=== PATIENT | male | born 1980 | race Caucasian/White ===

== ENCOUNTER 2021-03-26 15:39 | Emergency (ER) | payer OTHER, SELFPAY ==
--- NOTE | ~2021-03-26 | XR_ITS ---
EXAMINATION: XR CHEST CLINICAL INFORMATION: Elevated glucose and leukocytosis COMPARISON: None TECHNIQUE: Frontal view of the chest was obtained. FINDINGS: No significant abnormality is noted involving the heart, lungs, mediastinum, bony thorax or soft tissues. XR/XR chest 1V IMPRESSION: Unremarkable examination.
[2021-03-26 15:56] VITALS: BP 112/90; PULSE 112; RESP 18; TEMP 36.1; O2SAT 99; BMI 27.8
--- NOTE | 2021-03-26 21:26 | PC.NURSE ---
patient [facility] to [facility] because of attempting to get blood work and not giving him IV fluids in waiting room. States this should be illegal. States so many other people have been seen before him and that we are purposely keeping patient in waiting room. I educated patient that it is not purposeful and that we are busy, and that we are drawing blood to speed the process for him. Patient became verbally agressive and stated this is the worst Fing place to be.
[2021-03-26 21:41] LABS: Glucose, Whole Blood 170 mg/dL (60-115)
--- NOTE | 2021-03-26 22:27 | ED.GENADULT ---
HPI - General Adult General Chief complaint: General Medical Stated complaint: blood sugar 400-[address] [facility] Time Seen by Provider: 03/26/21 22:17 Source: patient Mode of arrival: ambulatory Limitations: no limitations History of Present Illness HPI narrative: 40-year-old male with a history of type 1 diabetes here with complaints of feeling dehydrated with high blood sugars over the last 3-4 days. Patient tells me his blood sugars have been over 400. He has been taking his insulin as prescribed. He denies any cough, fever, shortness of breath, chest pain, abdominal pain, vomiting, diarrhea or urinary symptoms. He tells me that he is feeling dehydrated with increased thirst but not voiding as much as normal. Related Data Allergies Allergy/AdvReac Type Severity Reaction Status Date / Time No Known Allergies Allergy Verified 03/26/21 22:26 Review of Systems Review of Systems: Yes all other systems are reviewed and are negative Constitutional: Constitutional: Reports no additional constitutional complaints, Denies body ache(s), Denies chills, Denies fever(s), Denies headache(s) and Reports weakness Comments: Increased thirst Eyes: Eyes: Reports no additional eye complaints and Denies change in vision ENT: Reports system reviewed and no additional complaints, except as documented, Denies dizziness, Denies headache(s), Denies nasal congestion, Denies nasal discharge and Denies neck pain Cardiovascular: Cardiovascular: Reports no additional cardiovascular complaints, Denies chest pain, Denies leg edema and Denies dyspnea Respiratory: Respiratory: Reports no additional respiratory complaints, Denies cough and Denies dyspnea Gastrointestinal: Gastrointestinal: Reports no additional gastrointestinal complaints, Denies abdominal pain, Denies diarrhea, Denies nausea and Denies vomiting Genitourinary: Genitourinary: Denies urinary incontinence Comments: Decreased urination Musculoskeletal: Musculoskeletal: Reports no additional musculoskeletal complaints, Denies back pain, Denies arthralgias, Denies joint swelling, Denies neck pain, Denies numbness and Denies tingling Integumentary/Breasts: Skin/Breast: Reports system reviewed and no additional complaints, except as docu and Denies rash Neurologic: Reports system reviewed and no additional complaints, except as documented, Denies Abnormal speech present, Denies dizziness, Denies headache(s), Denies numbness, Denies tingling and Reports weakness PMFSH Past Medical History Attestation statement: The following information was validated with the patient. Source: old records reviewed and nursing notes reviewed Social History Social History Advance Directives: No Advance Directives Information Provided: No Physical Exam Vital Signs: Vital Signs: Last Vital Signs Temp 97.9 F 03/26/21 23:23 Pulse 97 03/27/21 01:08 Resp 12 03/27/21 01:08 BP 121/64 03/27/21 01:08 Pulse Ox 97 03/27/21 01:08 Body Mass Index 27.8 Const: Other: Patient agitated and irritable General: alert Orientation/consciousness: patient oriented x3 Limitations: no limitations HENMT: Head: Yes normal to inspection Ears: hearing grossly normal bilaterally and TM's normal bilaterally General nose exam: Normal external nose present Face and sinus: Yes normal facial exam Mouth: Normal oral and palatal mucosa present Throat: Yes posterior oropharynx normal, Yes tonsils normal and Yes uvula midline Eyes: General: appearance normal, both eyes and all related structures Pupils: Equal, round and reactive pupils present Neck: Neck: Yes normal visual inspection, Yes full ROM, Yes no lymphadenopathy and Yes no meningeal signs Chest: Chest palpation & inspection: normal inspection of the chest Resp: Effort & Inspection: normal respiratory effort Auscultation: clear to auscultation bilaterally Cardio: Rate: regular rate Rhythm: regular rhythm Peripheral pulses: Peripheral pulses 2+ throughout GI: Inspection: Yes normal to inspection Palpation (GI): Soft to palpation and nontender Auscultation: normal bowel sounds Back/Spine/Pelvis: Thoracic/Lumbar Spine: thoracic and lumbar spine normal to inspection Skin: General skin exam: no rashes or lesions noted Neuro: General: patient oriented x3, no meningeal signs, no focal motor deficits and normal sensation to monofilament Cranial nerves: Yes Equal, round and reactive pupils present Cognition (Neuro): normal cognition Speech: No Abnormal speech present Gait exam (Neuro): Normal gait present Motor exam (neuro): 5/5 motor strength present throughout Extrem: General: Yes normal to inspection, Yes no pedal edema and Yes no calf tenderness Course Course Course Narrative: 40-year-old male here with complaints of high blood sugars over the last few days with unknown cause and feeling weak and dehydrated today. Blood sugar here 177. Patient tells me this is because he has not eaten for several hours. Quite irritable and agitated on my exam. I explained to the patient I would like to obtain lab work on him but he tells me he only wants IV fluids. I explained to him that we would check this at the same time. Patient tells me he has a difficult IV stick and only would like lab work. I offered placing an EJ but patient declined this. Therefore, will let nursing attempt IV placement and labs to be checked 2315-patient agreeable to EJ placement and labs are drawn off of this 2340-reviewed labs. Leukocytosis, hyponatremia, hypochloremia, acute kidney injury. Blood sugar is 134. No evidence of DKA. I spoke to the patient. Recommended he be admitted for IV hydration and observation but he declined this. He is alert and oriented and able to make his own decisions. Will check chest x-ray and UA to rule out underlying infection. Patient is agreeable to this. Refused EKG. 0115-chest x-ray shows no acute finding. Patient refused to provide urine sample. I spoke to him again at length. Recommended admission but patient declined. Here with his partner who will bring him home. He is alert and oriented. We discussed AMA form Procedures Procedure Narrative Procedure Narrative: 20 gauge left EJ placed Medical Decision Making MDM Narrative Medical decision making narrative: Underlying infection DKA Medical Records Medical records reviewed: Yes I reviewed the patient's medical records. Lab Data Lab results reviewed: Yes I reviewed the patient's lab results. Result diagrams: 03/26/21 23:04 03/26/21 23:04 Labs: Lab Results 03/26/21 03/26/21 03/26/21 Range/Units 21:33 23:04 23:04 WBC 16.0 H (4.8-10.8) X10*3/uL RBC 5.66 (4.60-5.80) X10*6/uL Hgb 17.3 (14.0-18.0) g/dl Hct 47.3 (42.0-52.0) % MCV 83.6 (80.0-98.0) fL MCH 30.6 (27.0-33.0) pg MCHC 36.6 H (31.0-36.0) g/dl RDW 12.2 (11.0-16.0) % Plt Count 261 (160-400) X10*3/uL MPV 9.9 (9.4-12.4) fL Immature Gran % (Auto) 0.6 H (0.0-0.4) % Neut % (Auto) 74.8 H (45-73) % Lymph % (Auto) 13.7 L (20-40) % [place] % (Auto) 9.4 (2-11) % Eos % (Auto) 1.3 (0-4) % Baso % (Auto) 0.2 (0-2) % Lymph # (Auto) 2.2 (1.2-4.9) X10*3/uL [place] # (Auto) 1.5 H (0.1-1.2) X10*3/uL Eos # (Auto) 0.2 (0.0-0.4) X10*3/uL Baso # (Auto) 0.0 (0.0-0.2) X10*3/uL Abs Immat Gran (auto) 0.10 H (0.00-0.03) X10*3/uL Absolute Neuts (auto) 11.93 H (2.0-8.3) x10*3/uL Absolute Nucleated RBC 0.000 (0.0-0.012) X10*3/uL Nucleated RBC % (auto) 0.0 (0.0-0.2) /100WBC VBG pH (7.32-7.43) VBG pCO2 mmHg VBG pO2 mmHg VBG HCO3 (22-26) mmol/L VBG O2 Saturation % VBG Base Excess mmol/L Sodium 125 L (135-145) mmol/L Potassium 3.8 (3.3-5.1) mmol/L Chloride 87 L (96-108) mmol/L Carbon Dioxide 23 (22-29) mmol/L Anion Gap 19 (12-20) BUN 59 H (9-16) mg/dL Creatinine 2.69 H (0.5-1.4) mg/dL Estim Creat Clear Calc 40.8 Estimated GFR 27 POC Glucose 170 H (60-115) mg/dL Random Glucose 134 H (60-115) mg/dL Lactic Acid (0.5-2.0) mmol/L Calcium 10.0 (8.4-10.2) mg/dL Magnesium 2.9 H (1.6-2.6) mg/dL Total Bilirubin 1.1 H (0.0-1.0) mg/dL Direct Bilirubin (0.0-0.5) mg/dL AST 19 (5-37) U/L ALT 17 (0-40) U/L Alkaline Phosphatase 123 H (39-117) U/L Total Protein 8.6 H (6.5-8.0) g/dL Albumin 5.0 (3.5-5.0) g/dL Urine Color Urine Appearance Urine pH (5.0-8.0) Ur Specific [place] (1.005-1.025) Urine Protein (NEG-TRACE) MG/DL Urine Glucose (UA) (NEG) MG/DL Urine Ketones (NEG) MG/DL Urine Blood (NEG) Urine Nitrite (NEG) Ur Leukocyte Esterase (NEG) Urine RBC (0) /HPF Urine WBC (0-4) /HPF Ur Squamous Epith Cells /LPF Talc Crystals /LPF Urine Bacteria /LPF Hyaline Casts /LPF Granular Casts /LPF WBC Casts /LPF Acetone, Qual (Negative) 03/26/21 03/26/21 03/26/21 Range/Units 23:04 23:04 23:08 WBC (4.8-10.8) X10*3/uL RBC (4.60-5.80) X10*6/uL Hgb (14.0-18.0) g/dl Hct (42.0-52.0) % MCV (80.0-98.0) fL MCH (27.0-33.0) pg MCHC (31.0-36.0) g/dl RDW (11.0-16.0) % Plt Count (160-400) X10*3/uL MPV (9.4-12.4) fL Immature Gran % (Auto) (0.0-0.4) % Neut % (Auto) (45-73) % Lymph % (Auto) (20-40) % [place] % (Auto) (2-11) % Eos % (Auto) (0-4) % Baso % (Auto) (0-2) % Lymph # (Auto) (1.2-4.9) X10*3/uL [place] # (Auto) (0.1-1.2) X10*3/uL Eos # (Auto) (0.0-0.4) X10*3/uL Baso # (Auto) (0.0-0.2) X10*3/uL Abs Immat Gran (auto) (0.00-0.03) X10*3/uL Absolute Neuts (auto) (2.0-8.3) x10*3/uL Absolute Nucleated RBC (0.0-0.012) X10*3/uL Nucleated RBC % (auto) (0.0-0.2) /100WBC VBG pH 7.40 (7.32-7.43) VBG pCO2 37 mmHg VBG pO2 68 mmHg VBG HCO3 23 (22-26) mmol/L VBG O2 Saturation 90.0 % VBG Base Excess -0.8 mmol/L Sodium (135-145) mmol/L Potassium (3.3-5.1) mmol/L Chloride (96-108) mmol/L Carbon Dioxide (22-29) mmol/L Anion Gap (12-20) BUN (9-16) mg/dL Creatinine (0.5-1.4) mg/dL Estim Creat Clear Calc Estimated GFR POC Glucose (60-115) mg/dL Random Glucose (60-115) mg/dL Lactic Acid 1.0 (0.5-2.0) mmol/L Calcium (8.4-10.2) mg/dL Magnesium (1.6-2.6) mg/dL Total Bilirubin 1.1 H (0.0-1.0) mg/dL Direct Bilirubin 0.3 (0.0-0.5) mg/dL AST 25 (5-37) U/L ALT 18 (0-40) U/L Alkaline Phosphatase 124 H (39-117) U/L Total Protein 8.8 H (6.5-8.0) g/dL Albumin 5.0 (3.5-5.0) g/dL Urine Color Urine Appearance Urine pH (5.0-8.0) Ur Specific [place] (1.005-1.025) Urine Protein (NEG-TRACE) MG/DL Urine Glucose (UA) (NEG) MG/DL Urine Ketones (NEG) MG/DL Urine Blood (NEG) Urine Nitrite (NEG) Ur Leukocyte Esterase (NEG) Urine RBC (0) /HPF Urine WBC (0-4) /HPF Ur Squamous Epith Cells /LPF Talc Crystals /LPF Urine Bacteria /LPF Hyaline Casts /LPF Granular Casts /LPF WBC Casts /LPF Acetone, Qual Negative (Negative) 03/27/21 03/27/21 Range/Units 00:36 01:05 WBC (4.8-10.8) X10*3/uL RBC (4.60-5.80) X10*6/uL Hgb (14.0-18.0) g/dl Hct (42.0-52.0) % MCV (80.0-98.0) fL MCH (27.0-33.0) pg MCHC (31.0-36.0) g/dl RDW (11.0-16.0) % Plt Count (160-400) X10*3/uL MPV (9.4-12.4) fL Immature Gran % (Auto) (0.0-0.4) % Neut % (Auto) (45-73) % Lymph % (Auto) (20-40) % [place] % (Auto) (2-11) % Eos % (Auto) (0-4) % Baso % (Auto) (0-2) % Lymph # (Auto) (1.2-4.9) X10*3/uL [place] # (Auto) (0.1-1.2) X10*3/uL Eos # (Auto) (0.0-0.4) X10*3/uL Baso # (Auto) (0.0-0.2) X10*3/uL Abs Immat Gran (auto) (0.00-0.03) X10*3/uL Absolute Neuts (auto) (2.0-8.3) x10*3/uL Absolute Nucleated RBC (0.0-0.012) X10*3/uL Nucleated RBC % (auto) (0.0-0.2) /100WBC VBG pH (7.32-7.43) VBG pCO2 mmHg VBG pO2 mmHg VBG HCO3 (22-26) mmol/L VBG O2 Saturation % VBG Base Excess mmol/L Sodium (135-145) mmol/L Potassium (3.3-5.1) mmol/L Chloride (96-108) mmol/L Carbon Dioxide (22-29) mmol/L Anion Gap (12-20) BUN (9-16) mg/dL Creatinine (0.5-1.4) mg/dL Estim Creat Clear Calc Estimated GFR POC Glucose 77 (60-115) mg/dL Random Glucose (60-115) mg/dL Lactic Acid (0.5-2.0) mmol/L Calcium (8.4-10.2) mg/dL Magnesium (1.6-2.6) mg/dL Total Bilirubin (0.0-1.0) mg/dL Direct Bilirubin (0.0-0.5) mg/dL AST (5-37) U/L ALT (0-40) U/L Alkaline Phosphatase (39-117) U/L Total Protein (6.5-8.0) g/dL Albumin (3.5-5.0) g/dL Urine Color YELLOW Urine Appearance CLEAR Urine pH 6.0 (5.0-8.0) Ur Specific [place] 1.020 (1.005-1.025) Urine Protein TRACE (NEG-TRACE) MG/DL Urine Glucose (UA) 250 H (NEG) MG/DL Urine Ketones NEG (NEG) MG/DL Urine Blood TRACE (NEG) Urine Nitrite NEG (NEG) Ur Leukocyte Esterase NEG (NEG) Urine RBC 0-2 (0) /HPF Urine WBC 1-4 (0-4) /HPF Ur Squamous Epith Cells NONE /LPF Talc Crystals TRACE /LPF Urine Bacteria TRACE /LPF Hyaline Casts 0-2 /LPF Granular Casts 5-9 /LPF WBC Casts 0-2 /LPF Acetone, Qual (Negative) Imaging Data Chest x-ray: Attestation: I personally reviewed and interpreted this imaging study as follows: Radiologist's impression: EXAMINATION: XR CHEST CLINICAL INFORMATION: Elevated glucose and leukocytosis COMPARISON: None TECHNIQUE: Frontal view of the chest was obtained. FINDINGS: No significant abnormality is noted involving the heart, lungs, mediastinum, bony thorax or soft tissues. XR/XR chest 1V IMPRESSION: Unremarkable examination. ? Discharge Plan Discharge Clinical Impression: LAI (acute kidney injury), Leukocytosis, Acute hyponatremia, Hypochloremia, Hyperglycemia Patient Disposition: Left Against Medical Advice Instructions: Dehydration (ED), Acute Kidney Injury (DC), Hyponatremia (ED), Leukocytosis (ED), Against Medical Advice (ED), Diabetic Hyperglycemia (ED) Additional Instructions: Your labs indicate a your severely dehydrated. It was recommended you be admitted to the hospital but you declined this. You may also have an underlying infection. You declined additional testing. If your kidney function continues to decline you may end up on dialysis. If your electrolytes continued to decline you may become confused and have a seizure. Stand Alone Forms: Against Medical Advice
[2021-03-26 23:10] LABS: MANUAL DIFF FLAG NO
[2021-03-26 23:14] LABS: Basophils Percent Auto 0.2 % (0-2); Eosinophils Absolute Auto 0.2 X10*3/uL (0.0-0.4); Eosinophils Percent Auto 1.3 % (0-4); Hematocrit 47.3 % (42.0-52.0); Hemoglobin 17.3 g/dl (14.0-18.0); Imm Gran Pct Auto 0.6 % (0.0-0.4); Lymphocytes Absolute Auto 2.2 X10*3/uL (1.2-4.9); Lymphocytes Percent Auto 13.7 % (20-40); Mean Corpuscular HGB Conc 36.6 g/dl (31.0-36.0); Mean Corpuscular Hemoglobin 30.6 pg (27.0-33.0); Mean Corpuscular Volume 83.6 fL (80.0-98.0); Mean Platelet Volume 9.9 fL (9.4-12.4); Monocytes Absolute Auto 1.5 X10*3/uL (0.1-1.2); Monocytes Percent Auto 9.4 % (2-11); Neutrophils Absolute Auto 11.93 x10*3/uL (2.0-8.3); Neutrophils Percent Auto 74.8 % (45-73); Platelet Count 261 X10*3/uL (160-400); Red Blood Count 5.66 X10*6/uL (4.60-5.80); Red Cell Distribution Width 12.2 % (11.0-16.0)
[2021-03-26 23:15] LABS: VBG Base Excess -0.8 mmol/L; VBG HCO3 23 mmol/L (22-26); VBG pCO2 37 mmHg; VBG pO2 68 mmHg
[2021-03-26 23:16] LABS: Venous Blood Gas Refer to POC result
[2021-03-26 23:23] VITALS: BP 118/89; PULSE 96; RESP 12; TEMP 36.6; O2SAT 97
[2021-03-26 23:23] LABS: Acetone, serum QL Negative (Negative)
[2021-03-26] MEDS: 0.9 % Sodium Chloride 1,000 ML 999 ML IV ×2 (23:24)
[2021-03-26 23:32] LABS: Alanine Aminotransferase 18 U/L (0-40); Alkaline Phosphatase 124 U/L (39-117); Aspartate Amino Transferase 25 U/L (5-37); Bilirubin Direct 0.3 mg/dL (0.0-0.5); Bilirubin Total 1.1 mg/dL (0.0-1.0); Total Protein 8.8 g/dL (6.5-8.0)
[2021-03-26 23:33] LABS: Alanine Aminotransferase 17 U/L (0-40); Alkaline Phosphatase 123 U/L (39-117); Anion Gap 19 (12-20); Aspartate Amino Transferase 19 U/L (5-37); Bilirubin Total 1.1 mg/dL (0.0-1.0); Blood Urea Nitrogen 59 mg/dL (9-16); Carbon Dioxide 23 mmol/L (22-29); Chloride 87 mmol/L (96-108); Creatinine Clr Calc Pharmacy 40.8; Estimated Glomerular Filt Rate 27; Glucose Random 134 mg/dL (60-115); Magnesium 2.9 mg/dL (1.6-2.6); Potassium 3.8 mmol/L (3.3-5.1); Sodium 125 mmol/L (135-145); Total Protein 8.6 g/dL (6.5-8.0)
[2021-03-27 00:43] LABS: Appearance Urine CLEAR; Color Urine YELLOW; Glucose Urine UA 250 MG/DL (NEG); Leukocyte Esterase Urine NEG (NEG); Nitrite Urine NEG (NEG); UACC Culture Trigger NO; Urine Blood TRACE (NEG); Urine Ketones NEG (NEG); Urine Protein TRACE MG/DL (NEG-TRACE)
[2021-03-27 00:54] LABS: Bacteria Urine TRACE /LPF; Hyaline Casts Urine 0-2 /LPF; RBC Urine 0-2 /HPF (0); White Blood Cell Casts Urine 0-2 /LPF
[2021-03-27 00:55] LABS: Urine Talc Crystals TRACE /LPF
[2021-03-27 01:08] VITALS: BP 121/64; PULSE 97; RESP 12; O2SAT 97
[2021-03-27 01:09] LABS: Glucose, Whole Blood 77 mg/dL (60-115)
== END 2021-03-27 01:20 | disposition left against medical advice (07) ==
PROVIDERS: Nurse Practitioner Family; Emergency Provider Internal Medicine; PCP Emergency Medicine
DX: E10.65 Type 1 diabetes mellitus with hyperglycemia (principal); N17.9 Acute kidney failure, unspecified; D72.829 Elevated white blood cell count, unspecified; E87.1 Hypo-osmolality and hyponatremia; E87.8 Other disorders of electrolyte and fluid balance, not elsewhere classified
CPT/HCPCS: 36415; 71045; 80053; 80076; 81001; 82009; 82248; 82803; 82947; 83605; 83735; 85025; 87040; 96360; 96361; 99284

== ENCOUNTER 2021-12-11 12:10 | Emergency (ER) | payer MEDICARE, OTHER, SELFPAY | END 2021-12-11 15:41 | disposition left against medical advice (07) | PROVIDERS: Emergency Provider Emergency Medicine; PCP Internal Medicine Geriatric Medicine | DX: R73.9 Hyperglycemia, unspecified (principal) ==

== ENCOUNTER 2023-09-15 16:34 | Outpatient (REF) | payer OTHER, SELFPAY ==
[2023-09-15 17:55] LABS: MANUAL DIFF FLAG NO
[2023-09-15 17:59] LABS: Basophils Absolute Auto 0.1 X10*3/uL (0.0-0.2); Basophils Percent Auto 1.1 % (0-2); Eosinophils Absolute Auto 0.4 X10*3/uL (0.0-0.4); Eosinophils Percent Auto 5.4 % (0-4); Hematocrit 36.8 % (42.0-52.0); Hemoglobin 12.1 g/dl (14.0-18.0); Imm Gran Abs Auto 0.03 X10*3/uL (0.00-0.03); Imm Gran Pct Auto 0.4 % (0.0-0.4); Lymphocytes Absolute Auto 2.4 X10*3/uL (1.2-4.9); Lymphocytes Percent Auto 32.4 % (20-40); Mean Corpuscular HGB Conc 32.9 g/dl (31.0-36.0); Mean Corpuscular Hemoglobin 30.9 pg (27.0-33.0); Mean Corpuscular Volume 93.9 fL (80.0-98.0); Mean Platelet Volume 9.2 fL (9.4-12.4); Monocytes Absolute Auto 0.7 X10*3/uL (0.1-1.2); Monocytes Percent Auto 9.2 % (2-11); Neutrophils Absolute Auto 3.8 x10*3/uL (2.0-8.3); Neutrophils Percent Auto 51.5 % (45-73); Platelet Count 274 X10*3/uL (160-400); Red Blood Count 3.92 X10*6/uL (4.60-5.80); White Blood Count 7.4 X10*3/uL (4.8-10.8)
[2023-09-15 18:18] LABS: Creatinine Urine 112.44 mg/dL; Microalbum/Creatinine Ratio Ur 40.9 ug/mg cr (<30)
[2023-09-15 19:09] LABS: Alanine Aminotransferase 31 U/L (0-40); Albumin Level 4.1 g/dL (3.5-5.0); Alkaline Phosphatase 86 U/L (39-117); Anion Gap 9 (12-20); Aspartate Amino Transferase 24 U/L (5-37); Bilirubin Total 0.6 mg/dL (0.0-1.0); Blood Urea Nitrogen 16 mg/dL (9-16); Calcium 9.1 mg/dL (8.4-10.2); Carbon Dioxide 31 mmol/L (22-29); Chloride 99 mmol/L (96-108); Estimated Glomerular Filt Rate > 60; Glucose Random 359 mg/dL (60-115); Potassium 4.6 mmol/L (3.3-5.1); Sodium 134 mmol/L (135-145); Total Protein 6.8 g/dL (6.5-8.0)
== END 2023-09-15 16:35 | disposition home or self-care (01) ==
LOC: HO.HHCL 16:34
PROVIDERS: Visit Provider Internal Medicine Geriatric Medicine
DX: E10.65 Type 1 diabetes mellitus with hyperglycemia (principal)
CPT/HCPCS: 36415; 80053; 82043; 82570; 85025

== ENCOUNTER 2023-10-25 14:24 | Outpatient (REF) | payer OTHER, SELFPAY ==
[2023-10-25 16:27] LABS: Alanine Aminotransferase 27 U/L (0-40); Albumin Level 4.3 g/dL (3.5-5.0); Alkaline Phosphatase 94 U/L (39-117); Aspartate Amino Transferase 30 U/L (5-37); Bilirubin Direct 0.2 mg/dL (0.0-0.5); Bilirubin Total 0.7 mg/dL (0.0-1.0); Total Protein 7.2 g/dL (6.5-8.0)
[2023-10-26 05:05] LABS: Syphilis Screen Nonreactive (Nonreactive)
[2023-10-26 05:50] LABS: HIV AB/AG Nonreactive (Nonreactive); HIV Num 1 0.05 S/CO (0.00-0.99); ~Hepatitis C Antibody Nonreactive (Nonreactive)
[2023-10-28 14:38] LABS: TS Negative Control Passed; TS Panel A 0; TS Panel B 0; TS Positive Control Passed; TSpotTB Negative (Negative)
== END 2023-10-25 14:25 | disposition home or self-care (01) ==
LOC: HO.HHCL 14:24
PROVIDERS: Visit Provider Emergency Medicine
DX: F11.20 Opioid dependence, uncomplicated (principal)
CPT/HCPCS: 36415; 80076; 86481; 86780; 86803; 87389

== ENCOUNTER 2025-02-13 13:39 | Outpatient (REF) | payer MEDICAID, SELFPAY ==
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
--- OUTSIDE RECORDS SUMMARY | 2025-02-13 16:48 | XMS_ITS | Encounter Summary ---
Author Organization [employer] Address [address] [place] [address] 7t [place] [address] Care Team Providers Care Veneer Grader Name Role Phone Name, Fran HSIEH Primary Care Provider [phone] Josh Macdonald Unavailable Unavailable Reason for Visit * Reason Comments Med Refill Encounter Details Date Type Department Care Team ([facility] Contact Info) Description 05/19/2022 Refill [facility] [address] [place], [place] [phone] Rambo Mora MD [address] [place] [address] [phone] Social History Tobacco Use Types Packs/Day Years Used Date Smoking Tobacco: Every Day Cigarettes Smokeless Tobacco: Never Alcohol Use Standard Drinks/Week Comments Yes 0 (1 standard drink = 0.6 oz pur e alcohol) Sex and Gender Information Value Date Recorded Sex Assigned at Male 03/23/2022 10:20 AM EDT Legal Sex Male 10:20 AM EDT Gender Identity Male 03/23/2022 10:20 AM EDT Sexual Orientation Straight 03/23/2022 10 :20 AM EDT COVID-19 Exposure Response Date Recorded In the last 10 days, have yo u been in contact with someone who was confirmed or suspected to have Coronavirus/COVID-19? No / Unsure 05/12/2022 12:59 PM EST documented as of this encounter Plan of Treatment Upcoming Encounters Date Type Department Care Team ([facility] Contact Info) Description 02/26/2025 2:45 PM EDT Office Visit [facility] [address] [place] [address] [phone] Rambo Mora MD [address] [place] [address] 04/03/2025 2:45 PM EST Office Visit [facility] [address] [place] [phone] Name, MD Fran [address] [place] [phone] documented as of this encounter Visit Diagnoses Not on filedocumented in this encounter Additional Health Concerns Assessment Noted Time PHQ-9 Depression Total Score: 7 05/12/20 22 1:13 PM EST documented as of this encounter Care Teams Veneer Grader Relationship Specialty Start Date End Date Name, MD Fran [address] [place] [phone] PCP - General Family Medicine 12/02/20 Josh Macdonald FNP [address] [place] [address] Nurse Practitioner Family Medicine 04/27/23 documented as of this encounter
--- OUTSIDE RECORDS SUMMARY | 2025-02-13 16:48 | XMS_ITS | Encounter Summary ---
Author Organization [employer] Address [address] [facility] 7 [place] [address] Care Team Providers Care Maid Cleaning Cooking Name Role Phone Name, Fran HSIEH Primary Care Provider [phone] Josh Macdonald Unavailable Unavailable Reason for Visit * Reason Onset Date Comments Medication Question 08/12/2023 Encounter Details Date Type Department Care Team ([facility] st Contact Info) Description 08/12/2023 Telephone [facility]INE [address] [place], [place] [phone] Name, MD Fran [address] [place] [address] Medication Question Social History Tobacco Use Types Packs/Day Years Used Date Smoking Tobacco: Every Day Cigarettes Passive Smoke Exposure: Never Smokeless Tobacco: Never Alcohol Use Standard Drinks/Week Comments Yes 0 (1 standard drink = 0.6 oz pur e alcohol) Depression Answer Date Recorded Patient Health Questionnaire-9 Score 4 06/03/2023 Patient Health Questionnaire-9 Score 4 06/03/2023 Last PHQ-9: Questionnaire Data Not on file 0 06/03/2023 Housing Stability Answer Date Recorded What is [...] Answer Date Recorded Patient Health Questionnaire-2 Score 1 06/03/2023 Sex and Gender Information Value Date Recorded Sex Assigned at Male 03/23/2022 10:20 AM EDT Legal Sex Male 10:20 AM EDT Gender Identity Male 03/23/2022 10:20 AM EDT Sexual Orientation Straight 03/23/2022 10 :20 AM EDT documented as of this encounter Miscellaneous Notes * Telephone Encounter - Rodri Brown RN - 08/13/2023 1:57 PM EDT T/C to pt. For below message, No answer. LVM to call back on [phone]. * Telephone Encounter - Mason Olmedo - 08/12/2023 10:29 AM EDT Tc from pt requesting call back to discuss Adderall XR 20 MG 24 hr capsule and 10 MG. Pt stated medication was prescribed by Josh Macdonald and was advised by Dr. Mora to discuss it with pcp. Please contact pt at [phone]. documented in this encounter Plan of Treatment Upcoming Encounters Date Type Department Care Team (Late st Contact Info) Description 02/26/2025 2:45 PM EDT Office Visit [facility] [address] [place] [address] [phone] Rambo Mora MD [address] [place] [phone] 04/03/2025 2:45 PM EST Office Visit [facility] [address] [place] [address] [phone] Name, [place] [address] documented as of this encounter Visit Diagnoses Not on filedocumented in this encounter Additional Health Concerns Assessment Noted Time PHQ-9 Depression Total Score: 4 06/03/19 24 10:57 AM EST documented as of this encounter Care Teams Maid Cleaning Cooking Relationship Specialty Start Date End Date Name, [place] [address] PCP - General Family Medicine 12/02/20 Josh Macdonald FNP [address] [place] [phone] Nurse Practitioner Family Medicine 04/27/23 documented as of this encounter
--- OUTSIDE RECORDS SUMMARY | 2025-02-13 16:48 | XMS_ITS | Encounter Summary ---
Author Organization [employer] Address [address] [place] [address] 7 [place] [address] Care Team Providers Care Outpatient Scheduler Name Role Phone Name, Fran HSIEH Primary Care Provider [phone] Josh Macdonald Unavailable Unavailable Reason for Visit * Reason Onset Date Comments Medication 02/22/2023 Encounter Details Date Type Department Care Team ([facility] st Contact Info) Description 02/22/2023 Telephone [facility] MEDICINE [address] [place], [place] [phone] Name, MD Fran [address] [place] [address] Medication Social History Tobacco Use Types Packs/Day Years Used Date Smoking Tobacco: Every Day Cigarettes Passive Smoke Exposure: Never Smokeless Tobacco: Never Alcohol Use Standard Drinks/Week Comments Yes 0 (1 standard drink = 0.6 oz pur e alcohol) Depression Answer Date Recorded Patient Health Questionnaire-9 Score 5 01/12/2023 Depression Answer Date Recorded Patient Health Questionnaire-2 Score 1 01/12/2023 Sex and Gender Information Value Date Recorded Sex Assigned at Male 03/23/2022 10:20 AM EDT Legal Sex Male 10:20 AM EDT Gender Identity Male 03/23/2022 10:20 AM EDT Sexual Orientation Straight 03/23/2022 10 :20 AM EDT documented as of this encounter Miscellaneous Notes * Telephone Encounter - Rodri Brown RN - 02/23/2023 9:28 AM EDT T/C to pt. For below message, pt. Verbally agreed and understood. * Telephone Encounter - Adenike Collins - 02/22/2023 9:37 AM EDT Tc from patients spouse calling in regards to medication insulin glargine (Lantus SoloStar) 100 UNIT/ML pen not being covered by patients insurance. Pharmacy did advise Basaglar or Levemir. documented in this encounter Plan of Treatment Upcoming Encounters Date Type Department Care Team (Late st Contact Info) Description 02/26/2025 2:45 PM EDT Office Visit [facility] MED[facility]INE [address] [place] [phone] Rambo Mora MD [address] [place] [phone] 04/03/2025 2:45 PM EST Office Visit [facility] [address] [place] [phone] Name, MD Fran [address] [place] [phone] documented as of this encounter Visit Diagnoses Not on filedocumented in this encounter Additional Health Concerns Assessment Noted Time PHQ-9 Depression Total Score: 5 01/13/20 23 3:28 PM EDT documented as of this encounter Care Teams Outpatient Scheduler Relationship Specialty Start Date End Date Name, MD Fran [address] [place] [phone] PCP - General Family Medicine 12/02/20 Josh Macdonald FNP [address] [place] [phone] Nurse Practitioner Family Medicine 04/27/23 documented as of this encounter
--- OUTSIDE RECORDS SUMMARY | 2025-02-13 16:48 | XMS_ITS | Encounter Summary ---
Author Organization [employer] Address [address] [place] [address] 7 [place] [address] Care Team Providers Care File Clerk Name Role Phone Name, Fran HSIEH Primary Care Provider [phone] Josh Macdonald Unavailable Unavailable Reason for Visit * Reason Onset Date Comments Med Refill 04/09/2023 Encounter Details Date Type Department Care Team ([facility] st Contact Info) Description 04/09/2023 Telephone [facility] MEDICINE [address] [place], [place] [phone] Name, MD Fran [address] [place] [address] Med Refill Social History Tobacco Use Types Packs/Day Years Used Date Smoking Tobacco: Every Day Cigarettes Passive Smoke Exposure: Never Smokeless Tobacco: Never Alcohol Use Standard Drinks/Week Comments Yes 0 (1 standard drink = 0.6 oz pur e alcohol) Depression Answer Date Recorded Patient Health Questionnaire-9 Score 3 03/15/2023 Patient Health Questionnaire-9 Score 3 03/15/2023 Last PHQ-9: Questionnaire Data Not on file 1 Housing Stability Answer Date Recorded What is [...] Date Recorded Patient Health Questionnaire-2 Score 1 03/15/2023 Sex and Gender Information Value Date Recorded Sex Assigned at Male 03/23/2022 10:20 AM EDT Legal Sex Male 10:20 AM EDT Gender Identity Male 03/23/2022 10:20 AM EDT Sexual Orientation Straight 03/23/2022 10 :20 AM EDT documented as of this encounter Miscellaneous Notes * Telephone Encounter - Jennifer Gupta LPN - 04/09/2023 3:53 PM EST Medication pended to provider. * Telephone Encounter - Jay Langley - 04/09/2023 3:49 PM EST Tc from patient requesting medication refill for amphetamine-dextroamphetamine (Adderall) 10 MG tablet and amphetamine-dextroamphetamine (Adderall) 20 MG tablet. documented in this encounter Plan of Treatment Upcoming Encounters Date Type Department Care Team (Late st Contact Info) Description 02/26/2025 2:45 PM EDT Office Visit [facility] MEDICINE [address] [place] [phone] Rambo Mora MD [address] [place] [phone] 04/03/2025 2:45 PM EST Office Visit [facility] [address] [place] [phone] Name, MD Fran [address] [place] [phone] documented as of this encounter Visit Diagnoses Not on filedocumented in this encounter Additional Health Concerns Assessment Noted Time PHQ-9 Depression Total Score: 3 03/15/20 23 8:55 AM EDT documented as of this encounter Care Teams File Clerk Relationship Specialty Start Date End Date Name, MD Fran [address] [place] [address] PCP - General Family Medicine 12/02/20 Josh Macdonald FNP [address] [place] [address] Nurse Practitioner Family Medicine 04/27/23 documented as of this encounter
--- OUTSIDE RECORDS SUMMARY | 2025-02-13 16:48 | XMS_ITS | Encounter Summary ---
Author Organization [employer] Address [address] [facility] 7 [place] [address] Care Team Providers Care Phlebotomy Supervisor Name Role Phone Name, Fran HSIEH Primary Care Provider Josh Macdonald Unavailable Unavailable Reason for Visit * Reason Onset Date Comments Med Refill 07/08/2023 Encounter Details Date Type Department Care Team ([facility] st Contact Info) Description 07/08/2023 Refill [facility] MED & PEDS [address] [place] [address] Name, MD Fran [address] [place] [address] Social History Tobacco Use Types Packs/Day Years [...] AM EDT documented as of this encounter Plan of Treatment Upcoming Encounters Date Type Department Care Team (Late st Contact Info) Description 02/26/2025 2:45 PM EDT Office Visit [facility] [address] [place] [address] Rambo Mora MD [address] [place] [phone] 04/03/2025 2:45 PM EST Office Visit [facility] [address] [place] [address] NameFran MD [address] [place] [address] documented as of this encounter Visit Diagnoses Not on filedocumented in this encounter Additional Health Concerns Assessment Noted Time PHQ-9 Depression Total Score: 4 06/03/19 24 10:57 AM EST documented as of this encounter Care Teams Phlebotomy Supervisor Relationship Specialty Start Date End Date Name, MD Fran [address] [place] [phone] PCP - General Family Medicine 12/02/20 Josh Macdonald FNP [address] [place] [address] Nurse Practitioner Family Medicine 04/27/23 documented as of this encounter
--- OUTSIDE RECORDS SUMMARY | 2025-02-13 16:49 | XMS_ITS | Encounter Summary ---
Author Organization [employer] Address [address] [facility] 7t [place] [address] Care Team Providers Care Cell Maker Name Role Phone Name, Fran HSIEH Primary Care Provider [phone] Josh Macdonald Unavailable Unavailable Encounter Details Date Type Department Care Team (Late st Contact Info) Description 12/14/2024 Orders Only [facility] MED[facility]INE [address] [place] [address] Lashanda Orona RN Uncomplicated opioid dependence (CMS/HCC) Social History Tobacco Use Types Packs/Day Years [...] Description 02/26/2025 2:45 PM EDT Office Visit [facility] MEDICINE [address] [place] [address] Rambo Mora MD [address] [place] [address] 04/03/2025 2:45 PM EST Office Visit [address] [phone] Fran Scott MD [address] [place] [address] documented as of this encounter Visit Diagnoses Diagnosis Uncomplicated opioid dependence (CMS/HCC) documented in this encounter Additional Health Concerns Assessment Noted Time PHQ-9 Depression Total Score: 24 024 9:11 AM EST documented as of this encounter Care Teams Cell Maker Relationship Specialty Start Date End Date Fran Scott MD [address] [place] [phone] PCP - General Family Medicine 12/02/20 Josh Macdonald FNP [address] [place] [phone] Nurse Practitioner Family Medicine 04/27/23 documented as of this encounter
--- OUTSIDE RECORDS SUMMARY | 2025-02-13 16:49 | XMS_ITS | Clinical Summary ---
Author Organization [employer] Address [address] [facility] [address] [place] [address] Care Team Providers Care Hog Cutter Name Role Phone Name, Fran [facility] Primary Care Provider [phone] Josh Macdonald Unavailable Unavailable Allergies Active Allergy Reactions Criticality Noted Date Comments Sulfa Antibiotics Unknown 05/05/2010 Medications * This document contains information received from the source organization and may not represent a complete record from that organization. Blood Glucose Monitoring Suppl (FreeStyle glucose monitoring) kit 1 each in the morning, at noon, and at bedtime. Test 1 time by intradermal route 3 times every day Active nicotine (Nicotine Step 2) 14 MG/24HR patch Place 1 patch on the skin. Apply 1 patch by transdermal route every day and wear for 16-24 hours Active nicotine (Nicotine Step 1) 21 MG/24HR patch Place 1 patch on the skin. Apply 1 patch by transdermal route every day and wear for 16-24 hours Active nicotine (Nicotine Step 3) 7 MG/24HR patch Place 1 patch on the skin. Apply 1 patch by transdermal route every day and wear for 16-24 hours Active naloxone (Narcan) 4 mg/0.1 mL nasal spray Administer 4 mg into affected nostril(s) if needed for opioid reversal. [place] 0.1 milliliter by intranasal route in 1 nostril may repeat dose every 2-3 minutes as needed alternating nostrils with each dose Active hydrOXYzine HCl (Atarax) 50 MG tablet Take 50 mg by mouth if needed in the morning, at noon, in the evening, and at bedtime for anxiety. May cause drowsiness Active Alcohol Swabs (Easy Touch Alcohol Prep Medium) 70 % pads USE DIRECTED UP TO SIX TIMES DAILY 100 each 3 023 Active FreeStyle lancets 1 each by Other route 3 times daily. USE TO TEST BLOOD SUGAR THREE TIMES DAILY 100 each 3 023 Active FREESTYLE LITE test strip Use as instructed 100 each 12 023 Active Blood Glucose Monitoring Suppl (FreeStyle Lite) w/Device kitIndications:U ncontrolled type 1 diabetes mellitus with hyperglycemia (CMS/HCC) 1 kit 4 times daily. 1 kit 023 Active Continuous Glucose Sensor (FreeStyle Can 2 Sensor) miscIndications: Uncontrolled type 1 diabetes mellitus with hyperglycemia (CMS/HCC) Apply 1 sensor every 14 days 2 each 11 024 Active Continuous Glucose Patent Examiner (FreeStyle Can 2 [place]) deviceIndication s:Uncontrolled type 1 diabetes mellitus with hyperglycemia (CMS/HCC) Scan sensor every 8 hours 1 each 024 Active buprenorphine-na loxone (Suboxone) 4-1 MG per sublingual filmIndications: Opioid dependence, uncomplicated (CMS/HCC) Place 1 Film under the tongue Once per day for 14 days. 14 Film 024 Active insulin degludec (Tresiba FlexTouch) 200 UNIT/ML injection Inject 30 Units under the skin 2 times daily. 3 mL 024 Active nicotine polacrilex (Commit) 2 MG lozenge Dissolve 1 lozenge (2 mg) in the mouth every 2 (two) hours if needed for smoking cessation. 100 lozenge 025 Active pen needle 32G x 4 mm misc Use as instructed 100 each 5 025 Active insulin glargine (Basaglar KwikPen) 100 UNIT/ML penIndications:U ncontrolled type 1 diabetes mellitus with hyperglycemia (CMS/HCC) INJECT 30 UNITS SUBCUTANEOUSLY TWICE DAILY 15 mL 025 Active insulin aspart (NovoLOG FLEXPEN) 100 UNIT/ML penIndications:O pioid dependence, uncomplicated (CMS/HCC) INJECT 20 TO 25 UNITS SUBCUTANEOUSLY BEFORE MEALS AND SNACK PER SLIDING SCALE 30 mL 5 025 Active glucose blood (FREESTYLE LITE) test strip USE DIRECTED FOUR TIMES DAILY 100 strip 11 025 Active Buprenorphine HCl-Naloxone HCl (Suboxone) 8-2 MG SL filmIndications: Opioid dependence, uncomplicated (CMS/HCC) Place 1 Film under the tongue 2 times daily for 14 days. 28 Film 025 2024 Active nicotine polacrilex (Commit) 4 MG lozenge Dissolve 1 lozenge (4 mg) in the mouth every 2 (two) hours if needed for smoking cessation. 72 lozenge 1 025 Active nicotine polacrilex (Commit) 4 MG lozenge Dissolve 1 lozenge (4 mg) in the mouth every 2 (two) hours if needed for smoking cessation. 72 lozenge 1 024 2024 Discontinued(R eorder (will not trigger notification to Pharmacy)) Buprenorphine HCl-Naloxone HCl (Suboxone) 8-2 MG SL filmIndications: Opioid dependence, uncomplicated (CMS/HCC) Place 1 Film under the tongue 2 times daily for 14 days. 28 Film 025 2024 Discontinued(R eorder (will not trigger notification to Pharmacy)) Buprenorphine HCl-Naloxone HCl (Suboxone) 8-2 MG SL filmIndications: Opioid dependence, uncomplicated (CMS/HCC) Place 1 Film under the tongue 2 times daily for 14 days. 28 Film 025 2024 Discontinued(R eorder (will not trigger notification to Pharmacy)) nicotine polacrilex (Commit) 4 MG lozenge Dissolve 1 lozenge (4 mg) in the mouth every 2 (two) hours if needed for smoking cessation. 72 lozenge 1 025 2024 Discontinued(R eorder (will not trigger notification to Pharmacy)) Active Problems Problem Noted Date Diagnosed Date Anemia 06/04/2023 06/04/2023 Smoker 06/04/2023 06/04/2023 TSH elevation 06/04/2023 06/04/2023 Kidney stone 05/03/2023 Attention deficit disorder (ADD) without hyperac tivity 11/04/2022 Assessment & Plan (06/03/2023 11:44 AM EST): Consider also ASD, r/t son's diagnosis with similar behaviors. Pt has been taking Adderall 20 mg in the morning and Adderall 10 mg midday and afternoon. Today discussed options for longer-acting medication, such as a Methylphenidate formulation. Pt will research this on his own and let me know if he wishes to switch. Meanwhile no change. On 03/15/2023 provider informed patient that I would be retiring, but we would make every attempt to ensure smooth transition of care. F/U with me in 2 months. He agrees with the plan. Assessment & Plan (03/15/2023 9:30 AM EDT): Consider also ASD, r/t son's diagnosis with similar behaviors. Pt has been taking Adderall 20 mg in the morning and Adderall 10 mg midday and afternoon, and finding it helpful for focus, not losing things. He will continue this, and call for refill when due. Today 03/15/2023 provider informed patient that I would be retiring within the next year of so, but we would make every attempt to ensure smooth transition of care. Assessment & Plan (01/12/2023 5:20 PM EDT): Consider also ASD, r/t son's diagnosis with similar behaviors. Pt has been taking Adderall 20 mg in the morning and Adderall 10 mg midday and afternoon, and finding it helpful for focus, not losing things. He will continue this, and call for refill when due. Opioid dependence, uncomplicated 04/27/2022 Vaccine refused by patient 02/14/2021 Overview (04/27/2022): covid-19 vaccination refused Tobacco dependence syndrome 08/12/2012 Uncontrolled type 1 diabetes mellitus with hyper glycemia 08/12/2012 Assessment & Plan (01/13/2024 4:18 PM EDT): He's having hypoglycemia, apparently related to poor PO intake? Relapsed drug use? Lower tresiba to 30u bid/ use humalog tid ac sliding scale OJ box given to patient. FU with PCP Bipolar disorder, in partial remission, most recent episode depressed 07/13/2008 Assessment & Plan (01/13/2024 4:20 PM EDT): He seems to be out of MH care. Refer to to connect with psychiatry Advised to connect with wellness coach tomorrow He feels safe at home, denied SI. Assessment & Plan (10/14/2023 11:25 AM EDT): PROGRESS NOTE: ID: Naresh is a 43 y.o. White straight-identified cis-male with previous documented hx of Bipolar Disorder , ADHD/ADD, and Opioid Use Disorder. services including OP Psychotherapy psychopharmacology who presents for Bipolar, Depression, Anxiety, and Substance Use Disorder. During IBH Consult Naresh presenting with depressed mood, changes in sleep difficulty staying asleep , psychomotor agitation, trouble concentrating, fatigue/loss of energy, excessive worry/anxiety, difficulty controlling worry, restless/keyed up/On edge, easily fatigued, difficulty concentrating/Mind going blank , irritability, muscle tension, and sleep disturbance difficulty staying asleep , Pattern of unstable and intense interpersonal relationships, Impulsivity, Feelings of emptiness, and Other: mood swings, racing thoughts, and grandiosity, and Mg is currently on OBAT, has been sober for 20 years, denies cravings and other illicit drug use; for a period of 18+ mo, for all symptoms in the context of not having psych. medication, stress at work, relationship issues. PLAN: (check all that apply) New/Additional Services needed Off-site services for Behavioral Health Integration Plan External OP therapy referral and OP psychiatry Referral Patient Self Plan Patient to reach out to [facility] team as needed, Comply with medication , Patient to engage in OP therapy , and Patient to reach out to [facility] as needed Assessment & Plan (06/03/2023 11:42 AM EST): Mood swings are improved with complementary interventions including exercise and breathwork. Note that pt also uses cannabis and microdose mushrooms (which he grows himself. Does not believe he needs additional medication at this time, nor counseling. Assessment & Plan (04/26/2023 9:17 AM EST): Anhedonia, feeling depressed, little energy, poor appetite, guilt, concentration issues, and thoughts of (Passive SI, no plan or intent), feeling anxious, inability to control worries, worrying about different things, trouble relaxing, restlessness, and fearfulness. Naresh agrees to follow up if/when needed for support. Assessment & Plan (03/15/2023 9:32 AM EDT): Mood swings are improved with complementary interventions including exercise and breathwork. Note that pt also uses cannabis and microdose mushrooms (which he grows himself. Does not believe he needs additional medication at this time, nor counseling. Assessment & Plan (01/12/2023 5:23 PM EDT): Mood swings are improved with complementary interventions including exercise and breathwork. Note that pt also uses cannabis and microdose mushrooms (which he grows himself. Reviewed with pt that this provider does not have experience with this modality and therefore will need to be very cautious r/t potential interactions. Discussed options for pharmacological treatments, and pt will find the name of the medication that was recommended for him and at our next visit in 2 months we will discuss med options. Assessment & Plan (11/05/2022 1:15 PM EDT): Assessment: Naresh was engaged with active reflective listening and open-ended questions. Assessed symptoms, risks, and social supports with direct questions. Discussed current symptoms intensity and frequency. Emotions were normalized and validated. He identified exercise, and meditation as coping mechanisms and support from girlfriend as protective factors. Discussed OP therapy and Medication Management, reported interested in both services. Provided education around integrated medicine and the options of follow up BE's as needed. Provided contact information should questions or concerns arise. Plan: Naresh will continue to engage in effective coping mechanisms that has work for him. He will be referred for Ind. Therapy and Medication Management. Patient with hx of trauma in childhood, unable to specify, forgetfulness, mood swings, paranoia, little interest, trouble with sleeping, little energy at times, feeling bad about himself at times, trouble with concentration, being so fidgety, anxious, persistent worry and worry about multiple things, trouble relaxing at times, restlessness, fearful of loosing his job. He denies SI, HI, AVH or self-harm. 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 Patient will benefit from Ind. Therapy and medication Management. At this time Naresh Holliday meets criteria for Visit Diagnoses: Problem List Items Addressed This Visit Other Mood disorder (CMS/HCC) Patient ready to address current needs Yes Strengths include Naresh is in action stage of change and his motivation will serve as treatment engagement. PLAN: 1. Follow up with [facility]: Recommended for follow-up: during OBAT appts 2. Patient goal is to have someone to vent without judgement 3. Behavioral Recommendations a. Ind. Therapy b. Med. Managament c. Use of coping skills Type 1 diabetes mellitus 06/22/1989 024 Assessment & Plan (01/12/2024 6:24 PM EDT): Has hypoglycemia, likely combination of poor PO intake and unclear if he's using appropriate dose of humalog. I gave him a box of OJ and he felt better Lantus ( he hasn't picked up tresiba) was lowered to 30u bid, continue Humalog tid sliding scale and fu with PCP in 3-4w Resolved Problems Problem Noted Date Diagnosed Date Resolved Date Hx of opioid abuse 06/04/2023 06/04/2023 History of substance abuse 08/12/2012 0 10/14/2023 Assessment & Plan (06/03/2023 11:41 AM EST): Hx OUD, currently on Suboxone (being down-tapered). Hx cocaine use but clean x more than 1 year. Currently using cannabis, microdosing mushrooms, and occasional use of other hallucinogens. He does continue with regular drug screens as part of the OBAT program. Assessment & Plan (03/15/2023 9:31 AM EDT): Hx OUD, currently on Suboxone (being down-tapered). Hx cocaine use but clean x more than 1 year. Currently using cannabis, microdosing mushrooms, and occasional use of other hallucinogens. He does continue with regular drug screens as part of the OBAT program. Assessment & Plan (01/12/2023 5:25 PM EDT): Hx OUD, currently on Suboxone (being down-tapered). Hx cocaine use but clean x more than 1 year. Currently using cannabis, microdosing mushrooms, and occasional use of other hallucinogens. He does continue with regular drug screens as part of the OBAT program. Encounters * This document contains information received from the source organization and may not represent a complete record from that organization. Date Type Department Care Team Description 02/13/2025 1:30 PM EDT Office Visit [facility] [address] [place] [phone] Rambo Mora MD Uncomplicated opioid dependence (CMS/HCC) (Primary Dx); Tobacco dependence syndrome 02/13/2025 Travel 02/05/2025 Refill [facility] [address] [place] [address] Lashanda Orona RN Opioid dependence, uncomplicated (CMS/HCC) 01/31/2025 Orders Only [facility] [address] [place] [phone] Romero Hernandez MD 01/30/2025 1:15 PM EDT Office Visit [address] [phone] Rambo Mora MD Uncomplicated opioid dependence (CMS/HCC) (Primary Dx) 01/30/2025 Travel 01/24/2025 Orders Only [address] [id number] Lashanda Orona RN Uncomplicated opioid dependence (CMS/HCC) 01/15/2025 1:45 PM EDT Office Visit [address] [id number] Rambo Mora MD Uncomplicated opioid dependence (CMS/HCC) (Primary Dx) 01/15/2025 Travel 01/15/2025 Refill [facility] [address] [place] [phone] Lashanda Orona RN Opioid dependence, uncomplicated (CMS/HCC) 01/08/2025 Refill [facility] [address] [place] [phone] Lashanda Orona RN Opioid dependence, uncomplicated (CMS/HCC) 01/01/2025 1:30 PM EDT Clinical Support [facility] [address] [place] [phone] Lashanda Orona RN Uncomplicated opioid dependence ([facility]/HCC) (Primary Dx) 01/01/2025 Travel 12/25/2024 Refill [facility] [address] [place] [phone] Lashanda Orona RN Opioid dependence, uncomplicated ([facility]/HCC) 12/18/2024 1:30 PM EDT Clinical Support [facility] [address] [place] [phone] Lashanda Orona RN Uncomplicated opioid dependence ([facility]/HCC) (Primary Dx) 12/18/2024 Travel 12/14/2024 Orders Only [facility] [address] [place] [phone] Lashanda Orona RN Uncomplicated opioid dependence ([facility]/HCC) 12/07/2024 Refill [facility] [address] [place] [phone] Lashanda Orona RN Opioid dependence, uncomplicated ([facility]/HCC) 12/04/2024 2:30 PM EDT Clinical Support [address] [address] Lashanda Orona RN Uncomplicated opioid dependence ([facility]/HCC) 12/04/2024 Travel 11/28/2024 Refill [facility] [address] [place] [phone] Lashanda Orona RN Opioid dependence, uncomplicated ([facility]/HCC) 11/22/2024 Refill [facility] [address] [place], [place] [phone] Name, MD Fran from Last 3 Months Immunizations Immunization Administration Dates Next Due Hep A, Adult 09/22/2021,08/19/2020 Hep B, adult 09/22/2021,,08/19/2020,01/04/20 09,08/14/2008,07/18/2008 Influenza, IIV3, injectable 02/22/2016, 1 Pneumococcal Polysaccharide PPSV23 05/31/2009 Tdap 05/08/2015,10/10/2011 Social History Tobacco Use Types Packs/Day Years Used Date Smoking Tobacco: Some Days Cigarettes Passive Smoke Exposure: Never Smokeless Tobacco: Never Tobacco Cessation:Ready to Q uit: Not Asked; Counseling Given: Not Answered Alcohol Use Standard Drinks/Week Comments Yes 0 [...] Orientation Straight 03/23/2022 10 :20 AM EDT Last Filed Vital Signs Vital Sign Reading Time Taken Comments Blood Pressure 125/78 01/26/2024 3:13 PM EDT Pulse 117 01/26/2024 2:36 PM EDT Temperature 36.6 C (97.9 F) 01/12/2024 5:27 PM EDT Respiratory Rate 12 01/26/2024 2:36 PM EDT Oxygen Saturation 98% 01/26/2024 2:36 PM EDT Inhaled Oxygen Concentration - - Weight 75.8 kg (167 lb 3.2 oz) 01/26/2024 2:36 P M EDT Height 185.4 cm (6' 1 ) 01/12/2024 5:27 PM EDT Body Mass Index 22.06 01/12/2024 5:27 PM EDT Plan of Treatment Upcoming Encounters Date Type Department Care Team (Late st Contact Info) Description 02/26/2025 2:45 PM EDT Office Visit [facility] [address] [place] [address] [phone] Rambo Mora MD [address] [place] [address] [phone] 04/03/2025 2:45 PM EST Office Visit [facility] [address] [place] [address] [phone] Name, MD Fran [address] [place] [address] [phone] Health Maintenance Due Date Last Done Comments Disability Screening 1982 Diabetes: Foot Exam 1992 Eye Exam 1992 Alcohol/Substance Use Screening 1994 Family Planning (PISQ) 1997 HPV Vaccines (1 - Male 3-dose series) 1997 Pneumococcal Vaccine: Pediatrics (0 to 5 Years) and At-Risk Patients (6 to 49) Years (2 of 2 - PCV) 05/31/2010 05/31/2009 Lipid Panel 09/18/2022 09/18/2021 Diabetes: Hemoglobin A1C 02/04/2023 023, 05/12/2022, 09/18/2021 SDOH Screening 05/12/2023 05/12/2022 Diabetes: Urine Protein Screening 09/14/2024 09/15/2023, 08/07/2022, 02/10/2022, Additional history exists Depression Monitoring 10/24/2024 04/25/2024, 024 COVID-19 Vaccine ( - season) 2025 Influenza Vaccine (#1) 2025 02/22/2016, 2010 DTaP/Tdap/Td Vaccines (3 - Td or Tdap) 05/08/2025 05/08/2015, 10/10/2011 Tobacco Screening 02/13/2026 02/13/2025 Zoster Vaccines (1 of 2) 2032 RSV Patients and Patients Aged 60 years or older (1 - 1-dose 75+ series) 2057 Hepatitis A Vaccines Aged Out 09/22/2021, 08/20/19 21 No longer eligible based on patient's age to complete this topic Hepatitis B Vaccines Completed 09/22/2021, 11/04/2020, 08/19/2020, Additional history exists HIV Screening Completed 10/25/2023, 08/05/2020 Hepatitis C Screening Completed 10/25/2023, 021 HIB Vaccines Aged Out No longer eligi ble based on patient's age to complete this topic IPV Vaccines Aged Out No longer eligi ble based on patient's age to complete this topic Meningococcal B Vaccine Aged Out No l onger eligible based on patient's age to complete this topic Meningococcal Vaccine Aged Out No ady oj eligible based on patient's age to complete this topic RSV under 20 months Aged Out No longe r eligible based on patient's age to complete this topic Rotavirus Vaccines Aged Out No longer eligible based on patient's age to complete this topic Procedures Procedure Name Priority Date/Time Associated Diagnosis Comments POCT BENNETT-14 URINE DRUG SCREEN Routine 02/13/2025 2:11 PM EDT Uncomplicated opioid dependence (CMS/HCC) CT UPPER EXTREMITY WO CONTRAST RIGHT Routine 01/30/2025 3:34 PM EDT POCT BENNETT-14 URINE DRUG SCREEN Routine 01/30/2025 1:21 PM EDT Uncomplicated opioid dependence (CMS/HCC) POCT BENNETT-14 URINE DRUG SCREEN Routine 01/01/2025 2:05 PM EDT Uncomplicated opioid dependence (CMS/HCC) POCT BENNETT-14 URINE DRUG SCREEN Routine 12/18/2024 2:23 PM EDT Uncomplicated opioid dependence (CMS/HCC) HEPATITIS C AB W/REFL TO HCV RNA, QN, PCR Routine 10/25/2023 2:25 PM EDT Uncomplicated opioid dependence (CMS/HCC) HIV 1/2 ANTIGEN/ANTIBODY, FOURTH GENERATION W/RFL Routine 10/25/2023 2:25 PM EDT Uncomplicated opioid dependence (CMS/HCC) ALBUMIN, RANDOM URINE W/CREATININE Routine 09/15/2023 4:35 PM EDT Uncontrolled type 1 diabetes mellitus with hyperglycemia (CMS/HCC) POCT GLYCOSYLATED HEMOGLOBIN (HGB A1C) Routine 11/04/2022 3:46 PM EDT Uncontrolled type 1 diabetes mellitus with hyperglycemia (CMS/HCC) LIPID PANEL, STANDARD Routine 09/18/2021 3:22 PM EDT from Last 3 Months or Most Recently Relevant to Health Maintenance Results * (ABNORMAL) POCT BENNETT-14 Urine Drug Screen (02/13/2025 2:11 PM EDT) Only the most recent of4 resultswithin the time period is included. THC Negative Negative Cocaine Screen, Urine Positive(A) [...] CARE TEST ENTER/EDIT OR DERABLES Final Result * CT Upper Extremity w/o Contrast Right (01/30/2025 3:34 PM EDT) Anatomical Region Laterality Modality Upper Extremities Right Computed Tomog becca Historical Provider MD HURD CT PROCEDURES Final R esult * Hepatitis C Antibody with Reflex to HCV, RNA, Quantitative, Real-Time PCR (10/25/2023 2:25 PM EDT) Hepatitis C Antibody Nonreactive Nonreactive [facility] Comment:Antibodies to HCV no t detected; does not exclude early acuteHCV infection. Blood Venous blood specimen / Unknown 10/25/2023 2:25 PM EDT 10/25/2023 3:56 PM EDT us Rambo Mora MD LAB BLOOD ORDERABLES Final Resul t Performing Organization Address City/[facility]/ZIP Co de Phone Number [facility] [address] [place] [phone] * HIV-1/2 Antigen and Antibodies, Fourth Generation, with Reflexes (10/25/2023 2:25 PM EDT) HIV AB/AG Nonreactive Nonreactive [facility] Comment:HIV-1 p24 Ag and/or HIV-1/HIV-2 Ab not detected.A test result that is nonreactive does not exclude thepossibility of exposure to or infection with HIV-1 and/orHIV-2. Nonreactive results in this assay for individualswith prior exposure to HIV-1 and/or HIV-2 may be due toantigen and antibody levels that are below the limit ofdetection of this assay.The [employer] HIV Ag/Ab Combo assay result andsupplemental assay results should be interpreted inconjunction with the patient's clinical presentation,history and other laboratory results. If the results areinconsistent with clinical evidence, additional testing issuggested to confirm the result. Blood Venous blood specimen / Unknown 10/25/2023 2:25 PM EDT 10/25/2023 3:56 PM EDT us Rambo Mora MD LAB BLOOD ORDERABLES Final Resul t Performing Organization Address City/[facility]/ZIP Co de Phone Number [facility] [address] [place] [phone] * (ABNORMAL) Albumin, Random Urine W/Creatinine (09/15/2023 4:35 PM EDT) Creatinine, Urine 112.44 mg/dL [facility] Microalbumin Urine 46.0 mg/L [facility] Microalbum Creatinine Ratio Ur 40.9(H) <30 ug/mg cr [facility] Comment:Albumin/Creatinine R atio Reference Ranges: Normal: < 30 ug/mg creatinine Microalbuminuria: 30 - 300 ug/mg creatinineClinical Albuminuria: > 300 ug/mg creatinine Urine (Urine, Random) 09/15/2023 4:35 PM EDT 09/15/2023 5:45 PM EDT Fran Scott MD LAB URINE ORDERABLES Final Resul t [facility] [address] [place] [phone] * (ABNORMAL) POCT glycosylated hemoglobin (Hgb A1c) (11/04/2022 3:46 PM EDT) Hemoglobin A1C 9.2(A) 4.0 - 6.0 % Blood Capillary blood specimen / Unknown 11/04/2022 3:46 PM EDT Rambo Mora MD POINT OF CARE TEST ENTER/EDIT OR DERABLES Final Result * (ABNORMAL) LIPID PANEL, STANDARD (09/18/2021 3:22 PM EDT) Chol/HDLC Ratio 3.6 <5.0 (calc) [facility] Cholesterol, Total 180 <200 mg/dL [facility] HDL Cholesterol 50 > OR = 40 mg/dL [facility] LDL Cholesterol 103(H) mg/dL (calc) [facility] Comment: Reference range: <100 Desirable range <100 mg/dL for primary prevention; <70 mg/dL for patients with CHD or diabetic patients with > or = 2 CHD risk factors. LDL-C is now calculated using the Saroj calculation, which is a validated novel method providing better accuracy than the Friedewald equation in the estimation of LDL-C. Eliu HOLLIS et al. RANDALL. 2013;310(19): 8706-1809 (http://education.[employer].com/faq/EWZ543) Non-HDL Cholesterol 130(H) <130 mg/dL (calc) [facility] Comment: For patients with diabetes plus 1 major ASCVD risk factor, treating to a non-HDL-C goal of <100 mg/dL (LDL-C of <70 mg/dL) is considered a therapeutic option. Triglycerides 155(H) <150 mg/dL [facility] 09/18/2021 3:22 PM EDT us Franje Scott MD LAB BLOOD ORDERABLES Final Resul t [facility] [address] from Last 3 Months or Most Recently Relevant to Health Maintenance Insurance [place] [address] [place] [phone] [facility] STANDARD Care Teams Hog Cutter Relationship Specialty Start Date End Date Name, MD Fran [address] [place] [address] PCP - General Family Medicine 12/02/20 Josh Macdonald FNP [address] [place] [address] Nurse Practitioner Family Medicine 04/27/23
--- OUTSIDE RECORDS SUMMARY | 2025-02-13 16:49 | XMS_ITS | Encounter Summary ---
Author Organization [employer] Address [address] [place] [address] 7 [place] [address] Care Team Providers Care Nitrate Operator Name Role Phone Name, Fran HSIEH Primary Care Provider [phone] Josh Macdonald Unavailable Unavailable Reason for Visit * Reason Onset Date Comments Med Refill 08/18/2022 Encounter Details Date Type Department Care Team ([facility] st Contact Info) Description 08/18/2022 Telephone [facility] MEDICINE [address] [place], [place] [phone] Name, MD Fran [address] [place] [address] Med Refill Social History Tobacco Use Types [...] suspected to have Coronavirus/COVID-19? No / Unsure 08/17/2022 2:25 PM EDT documented as of this encounter Miscellaneous Notes * Telephone Encounter - Jamaica Anderson LPN - 08/18/2022 11:21 AM EDT Med is pended to 3/28/23 * Telephone Encounter - Gayathriadri Kian Childers - 08/18/2022 10:55 AM EDT Tc from pt requesting Med refill on amphetamine-dextroamphetamine (Adderall) 10 MG tablet amphetamine-dextroamphetamine XR (Adderall XR) 20 MG 24 hr capsule Please sent to [facility] - [place], [place] - [address] [place] [address] documented in this encounter Plan of Treatment Upcoming Encounters Date Type Department Care Team (Late st Contact Info) Description 02/26/2025 2:45 PM EDT Office Visit [facility] MEDICINE [address] [place] [address] Rambo Mora MD [address] [place] [address] 04/03/2025 2:45 PM EST Office Visit [address] [address] Name, MD Fran [address] [place] [address] documented as of this encounter Visit Diagnoses Not on filedocumented in this encounter Additional Health Concerns Assessment Noted Time PHQ-9 Depression Total Score: 7 05/12/20 22 1:13 PM EST documented as of this encounter Care Teams Nitrate Operator Relationship Specialty Start Date End Date Name, MD Fran [address] [place] [address] PCP - General Family Medicine 12/02/20 Josh Macdonald FNP [address] [place] [address] Nurse Practitioner Family Medicine 04/27/23 documented as of this encounter
--- OUTSIDE RECORDS SUMMARY | 2025-02-13 16:49 | XMS_ITS | Clinical Summary ---
Author Organization [address] [place] [address] [place] [address] Phone Care Team Providers Care Community Relations Police Lieutenant Name Role Phone Name, Fran HSIEH Primary Care Provider [phone] Encounters Date Type Department Care Team Description 01/30/2025 2:03 PM EDT - 01/30/2025 11:59 PM EDT Hospital Encounter [facility] CT Scan [address] [place] [address] Fracture Discharge Disposition: Home or Self Care 12/28/2024 7:44 AM EDT - 12/28/2024 11:59 PM EDT Hospital Encounter [facility] Ortho Xray [address] [place] [phone] Pain Discharge Disposition: Home or Self Care from Last 3 Months Social History Tobacco Use Types Packs/Day Years Used Date Smoking Tobacco: Never Assessed Sex and Gender Information Value Date Recorded Sex Assigned at Male 01/03/2025 12:40 PM EDT Legal Sex Male 4:20 PM EST Gender Identity Male 01/03/2025 12:40 PM EDT Sexual Orientation Straight 01/04/2025 8: 34 AM EDT Plan of Treatment Health Maintenance Due Date Last Done Comments Diabetes: Annual GFR (Glomerular Filtration Rate) 1982 Diabetes: Annual Foot Exam 1992 Diabetes: Annual Retina Eye Exam 1992 Social Influencers of Health Screening 04/22/2022 Diabetes: Annual Urine Albumin-Creatinine Ratio (uACR) 03/31/2024 Diabetes: Blood Sugar Control Test (HGBA1C) 03/31/2024 11/04/2022 Depression Screening 05/24/2024 COVID-19 Vaccine (4-25 season) 2025 Influenza Vaccine (#1) 2025 02/22/2016, 2010 DTaP,Tdap,and Td Vaccines (3 - Td or Tdap) 05/08/2025 05/08/2015, 10/10/2011 Cholesterol Screening (Lipid Panel) 09/18/2026 09/18/2021 RSV Immunization Adult Patients (1 - 1-dose 75+ series) 2057 Pneumococcal Vaccine: Pediatrics (0 to 5 Years) and At-Risk Patients (6 to 49 Years) Aged Out 05/31/2009 No longer eligible based on patient's age to complete this topic Hepatitis A Vaccines Completed 09/22/2021, 08/20/19 Hepatitis B Vaccines Completed 09/22/2021, 11/04/2020, 08/19/2020, Additional history exists HIV Screening Completed 10/25/2023 Hepatitis C Screening Completed 10/25/2023 HIB Vaccines Aged Out No longer eligi ble based on patient's age to complete this topic HPV Vaccines Aged Out No longer eligi ble based on patient's age to complete this topic IPV Vaccines Aged Out No longer eligi ble based on patient's age to complete this topic MMR Vaccines Aged Out No longer eligi ble based on patient's age to complete this topic Meningococcal ACWY Vaccine Aged Out N o longer eligible based on patient's age to complete this topic Meningococcal B Vaccine Aged Out No l onger eligible based on patient's age to complete this topic RSV Immunization Patients Under 20 months Aged Out No longer eligible based on patient's age to complete this topic Varicella Vaccines Aged Out No longer eligible based on patient's age to complete this topic Procedures Procedure Name Priority Date/Time Associated Diagnosis Comments CT UPPER EXTREMITY WO CONTRAST RIGHT STAT 01/30/2025 2:49 PM EDT Fracture XR CLAVICLE COMPLETE RIGHT Routine 12/28/2024 8:18 AM EDT Pain from Last 3 Months Results * CT Upper Extremity wo Contrast Right (01/30/2025 2:49 PM EDT) Anatomical Region Laterality Modality Upper Extremities, Humerus Right Compu mila Tomography 01/30/2025 2:57 PM EDT Impressions 01/30/2025 3:01 PM EDT CLAVICLE HARDWARE WITH EVALUATION LIMITED BY STREAK ARTIFACT DEMONSTRATES HEALING CHANGES WITHOUT EVIDENCE FOR NONUNION. -------- FINAL REPORT -------- Dictated By: Celestine Amin Dictated Date: 01/30/2025 14:57 ET Assigned Physician: Celestine Amin Reviewed and Electronically Signed By: Celestine Amin Signed Date: 01/30/2025 15:01 ET Workstation ID: [id number] Transcribed By: Self Edit Transcribed Date: 01/30/2025 14:57 ET Narrative 01/30/2025 3:01 PM EDT PROCEDURE: CT UPPER EXTREMITY WO CONTRAST RIGHT INDICATION: R/O NON-UNION CLAVICLE FRACTURE, LIMIT SCATTER TECHNIQUE: Dedicated CT of the right upper extremity was performed per protocol with multiplanar reformats. Total DLP 732 The examination was performed utilizing dose reduction techniques. COMPARISON: No priors available. FINDINGS: There is a completely healed fracture at the greater tuberosity near the bicipital groove with fracture fragment noted. There is hardware in the distal clavicle which creates streak artifact however this does suggest healing changes without evidence for nonunion. Hardware is intact. The distal clavicle is osteopenic. Remote rib deformities.. Procedure Note Celestine Amin MD - 01/30/2025 PROCEDURE: CT UPPER EXTREMITY WO CONTRAST RIGHT INDICATION: R/O NON-UNION CLAVICLE FRACTURE, LIMIT SCATTER TECHNIQUE: Dedicated CT of the right upper extremity was performed perprotocol with multiplanar reformats. Total DLP 732 The examination was performed utilizing dose reduction techniques. COMPARISON: No priors available. FINDINGS: There is a completely healed fracture at the greater tuberositynear the bicipital groove with fracture fragment noted. There is hardwarein the distal clavicle which creates streak artifact however this doessuggest healing changes without evidence for nonunion. Hardware isintact. The distal clavicle is osteopenic. Remote rib deformities.. IMPRESSION: CLAVICLE HARDWARE WITH EVALUATION LIMITED BY STREAK ARTIFACT DEMONSTRATESHEALING CHANGES WITHOUT EVIDENCE FOR NONUNION. -------- FINAL REPORT -------- Dictated By: Celestine Amin Dictated Date: 01/30/2025 14:57 ET Assigned Physician: Celestine Amin Reviewed and Electronically Signed By: Celestine Amin Signed Date: 01/30/2025 15:01 ET Workstation ID: [id number] Transcribed By: Self Edit Transcribed Date: 01/30/2025 14:57 ET us Mary MITTAL IMG CT PROCEDURES Final Resu lt * XR Clavicle Complete Right (12/28/2024 8:18 AM EDT) Narrative RIS PACS/VR - 12/28/2024 8:18 AM EDT This order has been auto-finalized and does not contain a result. us Angelo Sawyer MD IMG XR PROCEDURES Final Resul t RIS PACS/VR from Last 3 Months Insurance MEDICAID - [place] MEDICARE Care Teams Community Relations Police Lieutenant Relationship Specialty Start Date End Date Name, MD Fran [address] [place] [address] PCP - General Internal Medicine 01/04/25
--- OUTSIDE RECORDS SUMMARY | 2025-02-13 16:49 | XMS_ITS | Encounter Summary ---
Author Organization [employer] Address [address] [facility] 7t [place] [address] Care Team Providers Care Registered Respiratory Technician Name Role Phone Name, Fran HSIEH Primary Care Provider [phone] Josh Macdonald Unavailable Unavailable Encounter Details Date Type Department Care Team (Late st Contact Info) Description 01/24/2025 Orders Only [facility] MEDICINE [address] [place] [address] Lashanda Orona RN Uncomplicated opioid dependence (CMS/HCC) [...] Description 02/26/2025 2:45 PM EDT Office Visit [facility] MEDICINE [address] [place] [address] Rambo Mora MD [address] [place] [address] 04/03/2025 2:45 PM EST Office Visit [address] [address] Fran Scott MD [address] [place] [address] documented as of this encounter Visit Diagnoses Diagnosis Uncomplicated opioid dependence (CMS/HCC) documented in this encounter Additional Health Concerns Assessment Noted Time PHQ-9 Depression Total Score: 24 024 9:11 AM EST documented as of this encounter Care Teams Registered Respiratory Technician Relationship Specialty Start Date End Date Fran Scott MD [address] [place] [address] PCP - General Family Medicine 12/02/20 Josh Macdonald FNP [address] [place] [address] Nurse Practitioner Family Medicine 04/27/23 documented as of this encounter
--- OUTSIDE RECORDS SUMMARY | 2025-02-13 16:49 | XMS_ITS | Encounter Summary ---
Author Organization [employer] Address [address] [facility] 7t [place] [address] Care Team Providers Care Land Resource Specialist Name Role Phone Name, Fran HSIEH Primary Care Provider [phone] Josh Macdonald Unavailable Unavailable Reason for Visit * Reason Onset Date Comments Med Refill 07/08/2023 Encounter Details Date Type Department Care Team ([facility] st Contact Info) Description 07/08/2023 Refill [facility] [address] [place] [address] [phone] Name, MD Fran [address] [place] [address] Uncontrolled type 1 diabetes mellitus with hyperglycemia ([facility]/HCC) Social History Tobacco Use Types Packs/Day Years [...] Description 02/26/2025 2:45 PM EDT Office Visit [facility] MEDICINE [address] [place] [address] Rambo Mora MD [address] [place] [address] 04/03/2025 2:45 PM EST Office Visit [address] [address] Name, MD Fran [address] [place] [address] documented as of this encounter Visit Diagnoses Diagnosis Uncontrolled type 1 diabetes mellitus with hyperglycemia (CMS/HCC) documented in this encounter Additional Health Concerns Assessment Noted Time PHQ-9 Depression Total Score: 4 06/03/19 24 10:57 AM EST documented as of this encounter Care Teams Land Resource Specialist Relationship Specialty Start Date End Date Name, MD Fran [address] [place] [address] PCP - General Family Medicine 12/02/20 Josh Macdonald FNP [address] [place] [address] Nurse Practitioner Family Medicine 04/27/23 documented as of this encounter
--- OUTSIDE RECORDS SUMMARY | 2025-02-13 16:49 | XMS_ITS | Encounter Summary ---
Author Organization [employer] Address [address] [facility] 7t [place] [address] Care Team Providers Care Gore Maker Name Role Phone Name, Fran HSIEH Primary Care Provider [phone] Josh Macdonald Unavailable Unavailable Encounter Details Date Type Department Care Team (Late Contact Info) Description 09/15/2022 Orders Only [facility] [address] [place] [address] [phone] Rambo Mora MD [address] [place] [address] [phone] ADD (attention deficit disorder) without hyperactivity Social History Tobacco Use Types Packs/Day Years [...] PM EDT documented as of this encounter Plan of Treatment Upcoming Encounters Date Type Department Care Team (Late Contact Info) Description 02/26/2025 2:45 PM EDT Office Visit [facility] MEDICINE [address] [place] [address] Rambo Mora MD [address] [place] [address] 04/03/2025 2:45 PM EST Office Visit [facility] MEDICINE [address] [place] [address] Name, MD Fran [address] [place] [address] documented as of this encounter Visit Diagnoses Diagnosis ADD (attention deficit disorder) without hyperactivity Attention deficit disorder without mention of hyperactivity documented in this encounter Additional Health Concerns Assessment Noted Time PHQ-9 Depression Total Score: 7 05/12/20 22 1:13 PM EST documented as of this encounter Care Teams Gore Maker Relationship Specialty Start Date End Date Name, MD Fran [address] [place] [address] PCP - General Family Medicine 12/02/20 Josh Macdonald FNP [address] [place] [address] Nurse Practitioner Family Medicine 04/27/23 documented as of this encounter
--- OUTSIDE RECORDS SUMMARY | 2025-02-13 16:49 | XMS_ITS | Encounter Summary ---
Author Organization [employer] Address [address] [facility] 7t [place] [address] Care Team Providers Care Neurology Professor Name Role Phone Name, Fran HSIEH Primary Care Provider [phone] Josh Macdonald Unavailable Unavailable Encounter Details Date Type Department Care Team (Latest Contact Info) Description 02/13/2025 Travel Social History Tobacco Use Types Packs/Day Years [...] Description 02/26/2025 2:45 PM EDT Office Visit [facility] MEDICINE [address] [place] [address] Rambo oMra MD [address] [place] [address] 04/03/2025 2:45 PM EST Office Visit [address] [address] Name, MD Fran [address] [place] [address] documented as of this encounter Visit Diagnoses Not on filedocumented in this encounter Additional Health Concerns Assessment Noted Time PHQ-9 Depression Total Score: 24 024 9:11 AM EST documented as of this encounter Care Teams Neurology Professor Relationship Specialty Start Date End Date NameFran MD [address] [place] [address] PCP - General Family Medicine 12/02/20 Josh Macdonald FNP [address] [place] [address] Nurse Practitioner Family Medicine 04/27/23 documented as of this encounter
--- OUTSIDE RECORDS SUMMARY | 2025-02-13 16:49 | XMS_ITS | Encounter Summary ---
Author Organization [employer] Address [address] [facility] 7t [place] [address] Care Team Providers Care Bundles Hanger Name Role Phone Name, Fran HSIEH Primary Care Provider [phone] Josh Macdonald Unavailable Unavailable Encounter Details Date Type Department Care Team (Late st Contact Info) Description 01/31/2025 Orders Only [facility] [address] [place] [address] ProviderRomero MD Social History Tobacco Use Types Packs/Day Years [...] is your housing situation today? I have stellavladimir bell 03/08/[address] you [...] Description 02/26/2025 2:45 PM EDT Office Visit [facility] MEDICINE [address] [place] [address] Rambo Mora MD [address] [place] [address] 04/03/2025 2:45 PM EST Office Visit [address] [address] Name, MD Fran [address] [place] [address] documented as of this encounter Procedures Procedure Name Priority Date/Time Associated Diagnosis Comments CT UPPER EXTREMITY WO CONTRAST RIGHT Routine 01/30/2025 3:34 PM EDT documented in this encounter Results * CT Upper Extremity w/o Contrast Right (01/30/2025 3:34 PM EDT) Anatomical Region Laterality Modality Upper Extremities Right Computed Tomog becca us Historical Provider MD HURD CT PROCEDURES Final R esult documented in this encounter Visit Diagnoses Not on filedocumented in this encounter Additional Health Concerns Assessment Noted Time PHQ-9 Depression Total Score: 24 024 9:11 AM EST documented as of this encounter Care Teams Bundles Hanger Relationship Specialty Start Date End Date NameFran MD [address] [place] [address] PCP - General Family Medicine 12/02/20 Josh Macdonald FNP [address] [place] [address] Nurse Practitioner Family Medicine 04/27/23 documented as of this encounter
--- OUTSIDE RECORDS SUMMARY | 2025-02-13 16:49 | XMS_ITS | Encounter Summary ---
Author Organization [employer] Address [address] [facility] [address] [place] [address] Care Team Providers Care Bottom Cager Name Role Phone Name, Fran HSIEH Primary Care Provider [phone] Josh Macdonald Unavailable Unavailable Reason for Visit * Reason Comments Med Refill Encounter Details Date Type Department Care Team ([facility] st Contact Info) Description 12/13/2023 Refill [facility] MEDICINE [address] [place], [place] [phone] Name, MD Fran [address] [place] [address] Social History Tobacco Use Types Packs/Day Years Used Date Smoking Tobacco: Some Days Cigarettes Passive Smoke Exposure: Never Smokeless Tobacco: Never Alcohol Use Standard Drinks/Week Comments Yes 0 (1 standard drink = 0.6 oz pur e alcohol) Depression Answer Date Recorded Patient Health Questionnaire-9 Score 7 10/14/2023 Patient Health Questionnaire-9 Score 7 10/14/2023 Last PHQ-9: Questionnaire Data Not on file 0 10/14/2023 Housing Stability Answer Date Recorded What is [...] Date Recorded Patient Health Questionnaire-2 Score 1 10/14/2023 Sex and Gender Information Value Date Recorded Sex Assigned at Male 03/23/2022 10:20 AM EDT Legal Sex Male 10:20 AM EDT Gender Identity Male 03/23/2022 10:20 AM EDT Sexual Orientation Straight 03/23/2022 10 :20 AM EDT documented as of this encounter Plan of Treatment Upcoming Encounters Date Type Department Care Team (Late st Contact Info) Description 02/26/2025 2:45 PM EDT Office Visit [address] [address] Rambo Mora MD [address] [place] [address] 04/03/2025 2:45 PM EST Office Visit [address] [address] Name, MD Fran [address] [place] [address] documented as of this encounter Visit Diagnoses Not on filedocumented in this encounter Additional Health Concerns Assessment Noted Time PHQ-9 Depression Total Score: 7 10/14/19 24 9:29 AM EDT documented as of this encounter Care Teams Bottom Cager Relationship Specialty Start Date End Date Name, MD Fran [address] [place] [address] PCP - General Family Medicine 12/02/20 Josh Macdonald FNP [address] [place] [address] Nurse Practitioner Family Medicine 04/27/23 documented as of this encounter
--- OUTSIDE RECORDS SUMMARY | 2025-02-13 16:49 | XMS_ITS | Encounter Summary ---
Author Organization [employer] Address [address] [place] [address] 7 [place] [address] Care Team Providers Care Nurse Educator Name Role Phone Name, Fran HSIEH Primary Care Provider [phone] Josh Macdonald Unavailable Unavailable Reason for Visit * Reason Onset Date Comments Med Refill 07/08/2023 Encounter Details Date Type Department Care Team (Late st Contact Info) Description 07/08/2023 Refill [facility] MEDICINE [address] [place] [address] Name, MD Fran [address] [place] [address] Social History Tobacco Use Types Packs/Day Years [...] Description 02/26/2025 2:45 PM EDT Office Visit [facility] MEDICINE [address] [place] [address] Rambo Mora MD [address] [place] [address] 04/03/2025 2:45 PM EST Office Visit [address] [place] [address] [address] Name, MD Fran [address] [place] [address] documented as of this encounter Visit Diagnoses Not on filedocumented in this encounter Additional Health Concerns Assessment Noted Time PHQ-9 Depression Total Score: 4 06/03/19 24 10:57 AM EST documented as of this encounter Care Teams Nurse Educator Relationship Specialty Start Date End Date Name, MD Fran [address] [place] [address] PCP - General Family Medicine 12/02/20 Josh Macdonald FNP [address] [place] [address] Nurse Practitioner Family Medicine 04/27/23 documented as of this encounter
--- OUTSIDE RECORDS SUMMARY | 2025-02-13 16:49 | XMS_ITS | Encounter Summary ---
Author Organization [employer] Address [address] [facility] [address] [place] [address] Care Team Providers Care Rn Operating Room Name Role Phone Name, Fran HSIEH Primary Care Provider [phone] Josh Macdonald Unavailable Unavailable Reason for Visit * Reason Comments Med Refill Encounter Details Date Type Department Care Team (Late Contact Info) Description 08/10/[address] [facility] [address] [place] [phone] Rambo Mora MD [address] [place] [phone] ADD (attention deficit disorder) without hyperactivity Social [...] suspected to have Coronavirus/COVID-19? No / Unsure 08/10/2022 1:23 PM EDT documented as of this encounter Plan of Treatment Upcoming Encounters Date Type Department Care Team (Late Contact Info) Description 02/26/2025 2:45 PM EDT Office Visit [facility] [address] [place] [phone] Rambo Mora MD [address] [place] [phone] 04/03/2025 2:45 PM EST Office Visit [facility] [address] [place] [phone] Name, MD Fran [address] [place] [phone] documented as of this encounter Visit Diagnoses Diagnosis ADD (attention deficit disorder) without hyperactivity Attention deficit disorder without mention of hyperactivity documented in this encounter Additional Health Concerns Assessment Noted Time PHQ-9 Depression Total Score: 7 05/12/20 22 1:13 PM EST documented as of this encounter Care Teams Rn Operating Room Relationship Specialty Start Date End Date Name, MD Fran [address] [place] [phone] PCP - General Family Medicine 12/02/20 Josh Macdonald FNP [address] [place] [phone] Nurse Practitioner Family Medicine 04/27/23 documented as of this encounter
--- OUTSIDE RECORDS SUMMARY | 2025-02-13 16:49 | XMS_ITS | Encounter Summary ---
Author Organization [employer] Address [address] [place] [address] [address] [place] [address] Care Team Providers Care Marketing Program Coordinator Name Role Phone Name, Fran HSIEH Primary Care Provider [phone] Josh Macdonald Unavailable Unavailable Encounter Details Date Type Department Care Team (Late Contact Info) Description 06/26/2022 Orders Only [facility] [address] [place] [address] [phone] Lashanda Orona RN Uncomplicated opioid dependence (CMS/HCC) (Primary Dx) Social History Tobacco Use Types Packs/Day Years [...] suspected to have Coronavirus/COVID-19? No / Unsure 06/03/2022 3:45 PM EST documented as of this encounter Plan of Treatment Upcoming Encounters Date Type Department Care Team (Late st Contact Info) Description 02/26/2025 2:45 PM EDT Office Visit [facility] [address] [place] [address] [phone] Rambo Mora MD [address] [place] [address] [phone] 04/03/2025 2:45 PM EST Office Visit [facility] [address] [facility] [place] [address] Name, MD Fran [address] [place] [address] Scheduled Orders Name Type Priority Associated Diagnoses Orde r Schedule Hepatic Function Panel Lab Routine Uncomplicated opioid dependence (CMS/HCC) Expected: 06/26/2022 (Approximate), Expires: 06/26/2023 Hepatitis C Antibody with Reflex to HCV, RNA, Quantitative, Real-Time PCR Lab Routine Uncomplicated opioid dependence (CMS/HCC) Expected: 06/26/2022 (Approximate), Expires: 06/26/2023 HIV-1/2 Antigen and Antibodies, Fourth Generation, with Reflexes Lab Routine Uncomplicated opioid dependence (CMS/HCC) Expected: 06/26/2022 (Approximate), Expires: 06/26/2023 RPR (Monitor) with Reflex to Titer Lab Routine Uncomplicated opioid dependence (CMS/HCC) Expected: 06/26/2022 (Approximate), Expires: 06/26/2023 QUANTIFERON TB GOLD Lab Routine Uncomplicated opioid dependence (CMS/HCC) Expected: 06/26/2022 (Approximate), Expires: 06/26/2023 documented as of this encounter Visit Diagnoses Diagnosis Uncomplicated opioid dependence (CMS/HCC)- Primary documented in this encounter Additional Health Concerns Assessment Noted Time PHQ-9 Depression Total Score: 7 05/12/20 22 1:13 PM EST documented as of this encounter Care Teams Marketing Program Coordinator Relationship Specialty Start Date End Date [place], [place] [address] PCP - General Family Medicine 12/02/20 Josh Macdonald FNP [address] [place] [phone] Nurse Practitioner Family Medicine 04/27/23 documented as of this encounter
--- OUTSIDE RECORDS SUMMARY | 2025-02-13 16:49 | XMS_ITS | Encounter Summary ---
Author Organization [employer] Address [address] [facility] 7t [place] [address] Care Team Providers Care Power Ballast Machine Operator Name Role Phone Name, Fran HSIEH Primary Care Provider [phone] Josh Macdonald Unavailable Unavailable Reason for Visit * Reason Onset Date Comments Med Refill 07/08/2023 Encounter Details Date Type Department Care Team ([facility] st Contact Info) Description 07/08/2023 Refill [facility] [address], [place] [phone] Rambo Mora MD [address] [place] [phone] Uncontrolled type 1 diabetes mellitus with hyperglycemia ([facility]/HCC) Social History Tobacco Use Types Packs/Day Years [...] Description 02/26/2025 2:45 PM EDT Office Visit [facility] [address] [place] [phone] Rambo Mora MD [address] [place] [phone] 04/03/2025 2:45 PM EST Office Visit [address] [address] NameFran MD [address] [place] [phone] documented as of this encounter Visit Diagnoses Diagnosis Uncontrolled type 1 diabetes mellitus with hyperglycemia (CMS/HCC) documented in this encounter Additional Health Concerns Assessment Noted Time PHQ-9 Depression Total Score: 4 06/03/19 24 10:57 AM EST documented as of this encounter Care Teams Power Ballast Machine Operator Relationship Specialty Start Date End Date Name, MD Fran [address] [place] [phone] PCP - General Family Medicine 12/02/20 Josh Macdonald FNP [address] [place] [address] [phone] Nurse Practitioner Family Medicine 04/27/23 documented as of this encounter
--- OUTSIDE RECORDS SUMMARY | 2025-02-13 16:49 | XMS_ITS | Continuity of Care Document ---
Author Organization [facility] Address [address] [facility] [address] [place] [address] Phone [phone] Care Team Providers Care Flight Director Name Role Phone Name, Fran Care Team Information Site Director [phone] Social History Type Date Description Comments Sex Male Sex Unknown Medications Active Medications SIG Qnty Indications Order ing Provider Date Novolog [id number] Solution Pen-Inject Inject 20 To 25 Units Subcutaneously Before Meals And Snacks Per Insulin Sliding Fran Scott Buprenorphine Hydrochloride/[place]al[place]on e Hydrochloride8-2mg Film Dissolve 1 Film Under The Tongue Twice Daily Rambo Mora Xitdryx12J X 4 mm Misc Use as Directed Up To Six Times Daily Fran Scott Tresiba Wappenfyk763Dkil/ML Solution Pen-Inject Inject 30 Units Subcutaneously Twice Daily Gracie Magana Nicotine Ezclgzlcrl4ry Lozenges Dissolve 1 Lozenge In Mouth as Directed Every 2 Hours as Needed For Smoking Cess Rambo Mora Oxycodone HCL5mg Tablets Unknown Hivpuhuihqq1ww Tablets Dispers Unknown Levemir Ydqlhde443Wqbp/ML Solution Pen-Inject Inject 40 Units Subcutaneously Twice Daily Fran Scott Medical Devices Description No Information Available Encounters Description No Information Available Assessments Description No Information Available Plan of Treatment No Information Available Functional Status Description No Information Available Mental Status Description No Information Available Referrals Description No Information Available
[2025-02-13 16:59] LABS: Alanine Aminotransferase 19 U/L (0-40); Albumin Level 4.5 g/dL (3.5-5.0); Aspartate Amino Transferase 26 U/L (5-37); Total Protein 7.1 g/dL (6.5-8.0)
[2025-02-13 17:16] LABS: Alkaline Phosphatase 80 U/L (39-117)
[2025-02-14 08:50] LABS: ~HepC Num1 0.08 S/CO (0.00-0.79); ~Hepatitis C Antibody Nonreactive (Nonreactive)
[2025-02-14 09:09] LABS: Syphilis Screen Nonreactive (Nonreactive)
== END 2025-02-13 13:40 | disposition home or self-care (01) ==
LOC: HO.HHCL 13:39
PROVIDERS: PCP Internal Medicine Geriatric Medicine; Visit Provider Emergency Medicine
DX: F11.20 Opioid dependence, uncomplicated (principal)
CPT/HCPCS: 36415; 80076; 86481; 86780; 86803